=== PATIENT | male | born 1990 | race African-American/Black ===

== ENCOUNTER 2024-02-03 14:56 | Inpatient (IN) | payer BC ==
[2024-02-03 17:33] VITALS: BMI 35.4
[2024-02-03] MEDS ORDERED: ONDANSETRON *ODT* 4 MG TABLET SL PRN (17:42)
[2024-02-03] MEDS ORDERED: POLYETHYLENE GLYCOL (HEALTHYLAX) 3350 17 GM PACKET PO PRN (17:42)
[2024-02-03] MEDS ORDERED: LOPERAMIDE HCL 2 MG CAPSULE PO PRN (17:42)
[2024-02-03] MEDS ORDERED: MAG HYDROX/AL HYDROX/SIMETH 30 ML UNIT-DOSE CUP PO PRN (17:42)
[2024-02-03] MEDS ORDERED: NALOXONE (NARCAN) HCL 4 MG/0.1 ML SPRAY NS PRN (17:42)
[2024-02-03] MEDS ORDERED: BENZONATATE 200 MG CAPSULE PO PRN (17:42)
[2024-02-03] MEDS ORDERED: MAGNESIUM HYDROX 2400MG/30ML ORAL SUSPENSION 30 ML CUP PO PRN (17:42)
[2024-02-03] MEDS ORDERED: BISMUTH SUBSALICYLATE 524 MG/30 ML PO PRN (17:42)
[2024-02-03] MEDS ORDERED: DICYCLOMINE HCL 10 MG CAPSULE PO PRN (17:42)
[2024-02-03] MEDS ORDERED: guaiFENesin 600 MG TABLET.ER (FP) PO PRN (17:42)
[2024-02-03] MEDS ORDERED: BENZOCAINE/MENTHOL (CHLORASEPTIC ) LOZENGE MM PRN (17:42)
[2024-02-03] MEDS ORDERED: cloNIDine HCL 0.1 MG TABLET ONE (18:52)
[2024-02-03] MEDS: cloNIDine HCL 0.1 MG TABLET PO ONE (18:59)
[2024-02-03] MEDS: hydrOXYzine PAMOATE 25 MG CAPSULE (FP) PO PRN (19:22)
[2024-02-03] MEDS: diazePAM 5 MG TABLET PO PRN (19:23)
[2024-02-03] MEDS: ACETAMINOPHEN 325 MG TABLET (FP) PO PRN (20:59)
[2024-02-03] MEDS: MELATONIN 5 MG TABLETS PO SCH (21:03)
[2024-02-03] MEDS: THIAMINE 100 MG TABLET PO SCH (21:03)
[2024-02-03] MEDS: diazePAM 5 MG TABLET PO SCH (23:24)
[2024-02-04] MEDS: PRENATAL VITAMINS W/ FOLIC ACID TABLET (FP) PO SCH (10:21)
[2024-02-04] MEDS: amLODIPine BESYLATE 10 MG TABLET (FP) PO SCH (10:21)
[2024-02-04] MEDS: FAMOTIDINE 20 MG TABLET PO SCH (10:21)
[2024-02-04] MEDS: DIVALPROEX SODIUM 500 MG TABLET E.C. PO SCH (11:52)
[2024-02-04 13:42] LABS: HEMATOCRIT 44.5 % (35.4-49); HEMOGLOBIN 15.2 GM/dL (11.7-16.9); MCH 31.4 pg (25.7-33.7); MCHC 34.1 g/dl (32.0-35.9); MEAN PLT VOLUME 9.4 fl (7.5-11.1); PLATELET COUNT 171 10^3/uL (134-434); RBC 4.84 M/mm3 (4.00-5.60); RDW 14.1 % (11.9-15.9); WHITE BLOOD COUNT 4.4 K/mm3 (4.0-10.0)
[2024-02-04 13:45] LABS: POTASSIUM 4.1 mmol/L (3.5-5.1)
[2024-02-04 13:55] LABS: ALBUMIN 3.3 g/dl (3.4-5.0); CALCIUM 8.8 mg/dL (8.5-10.1)
[2024-02-04 13:59] LABS: CREATININE 1.9 mg/dL (0.55-1.3)
[2024-02-04 14:00] LABS: BILIRUBIN,TOTAL 0.5 mg/dL (0.2-1)
[2024-02-04 14:01] LABS: TOT PROT 6.6 g/dl (6.4-8.2)
[2024-02-04] MEDS: cloNIDine HCL 0.1 MG TABLET PO PRN (21:24)
[2024-02-04] MEDS: ATORVASTATIN CA 40 MG TABLET (FP) PO SCH (22:45)
[2024-02-05] MEDS: diazePAM 5 MG TABLET PO SCH (06:14)
[2024-02-05] MEDS: METHOCARBAMOL 500 MG TABLET PO PRN (17:08)
[2024-02-06] MEDS: diazePAM 5 MG TABLET PO SCH (06:27)
[2024-02-06] MEDS: NALOXONE (NYS OPIOID OVERDOSE PROGRAM) 4 MG/0.1 ML SPRAY NS SCH (15:55)
[2024-02-07] MEDS: PANTOPRAZOLE 40 MG TABLET PO SCH (06:01)
[2024-02-07] MEDS: diazePAM 5 MG TABLET PO ONE (06:01)
[2024-02-07 08:47] VITALS: BP 135/83; PULSE 62; RESP 18; TEMP 97.6
== END 2024-02-07 13:45 | disposition home or self-care (01) | DRG 775 ==
LOC: YASAS 14:56 → Y3N 16:25 → UNDOADMIN 16:25 → Y6N 18:22
PROVIDERS: ADMIT Allergy & Immunology; ATTEND Surgery
PROC: HZ2ZZZZ Detoxification Services for Substance Abuse Treatment (ICD-10-PCS; principal; 2024-02-03)
DX: F10.230 Alcohol dependence with withdrawal, uncomplicated (principal); F12.20 Cannabis dependence, uncomplicated; F31.9 Bipolar disorder, unspecified; F10.282 Alcohol dependence with alcohol-induced sleep disorder; F10.280 Alcohol dependence with alcohol-induced anxiety disorder; F10.24 Alcohol dependence with alcohol-induced mood disorder; E78.5 Hyperlipidemia, unspecified; I12.9 Hypertensive chronic kidney disease with stage 1 through stage 4 chronic kidney disease, or unspecified chronic kidney disease; N18.9 Chronic kidney disease, unspecified; R79.9 Abnormal finding of blood chemistry, unspecified
CPT/HCPCS: 36415; 80053; 85027; 86780; 93005; 93010